=== PATIENT | female | born 1970 | race Caucasian/White ===

== ENCOUNTER → 2020-05-14 | Outpatient (CLI) | payer BC, SELFPAY ==
[2020-05-15 10:00] LABS: HIV - WCH Non-Reactive (Nonreactive); Hepatitis B Surface Antibody Non-Reactive; Hepatitis C Antibody Non-Reactive (Nonreactive)
[2020-05-18 20:07] LABS: Chlamydia By Nucleic Acid AMP Negative (Negative)
[2020-05-18 21:09] LABS: Gonococcus By Nucleic Acid AMP Negative (Negative)
[2020-05-20 10:10] LABS: HPV APTIMA, High Risk Negative (Negative)
[2020-05-21 02:50] LABS: Rapid Plasmin Reagin (RPR) NONREACTIVE (NONREACTIVE)
== END | disposition home or self-care (01) ==
PROVIDERS: PCP Internal Medicine; Visit Provider Obstetrics & Gynecology
DX: Z12.4 Encounter for screening for malignant neoplasm of cervix (principal); Z11.3 Encounter for screening for infections with a predominantly sexual mode of transmission
CPT/HCPCS: 86592; 86703; 86706; 86803; 87491; 87591; 87624; 88175; G0145